=== PATIENT | male | born 1990 | race Caucasian/White ===

== ENCOUNTER 2020-04-17 05:34 | Emergency (ER) | payer OTHER ==
[~2020-04-17] VITALS: Ht 167.6 cm; Wt 58.0 kg
[2020-04-17 05:40] VITALS: BP 105/55
[2020-04-17] MEDS ORDERED: HYDROcodone/APAP 5/325 TABLET PO ONE (06:00)
--- NOTE | 2020-04-17 06:57 | NUR ---
REPORT TO JERED MAIER
[2020-04-17] MEDS ORDERED: HYDROcodone/APAP 5/325 TABLET ONE (07:01)
== END 2020-04-17 07:13 | disposition home or self-care (01) ==
LOC: ED 06:38
DX: K08.89 Other specified disorders of teeth and supporting structures (principal); F17.210 Nicotine dependence, cigarettes, uncomplicated
CPT/HCPCS: 99283

== ENCOUNTER 2021-01-14 22:31 | Emergency (ER) | payer OTHER ==
[~2021-01-14] VITALS: Ht 170.2 cm; Wt 65.0 kg
[2021-01-14 22:33] VITALS: BP 114/74
[2021-01-14] MEDS ORDERED: KETOROLAC 60 MG/2 ML ONE (23:15)
[2021-01-14] MEDS ORDERED: KETOROLAC 60 MG/2 ML IM ONE (23:30)
== END 2021-01-14 23:41 | disposition home or self-care (01) ==
LOC: ED 23:35
DX: S83.206A Unspecified tear of unspecified meniscus, current injury, right knee, initial encounter (principal); M25.461 Effusion, right knee; X58.XXXA Exposure to other specified factors, initial encounter; Y93.89 Activity, other specified; Y92.89 Other specified places as the place of occurrence of the external cause; Y99.8 Other external cause status
CPT/HCPCS: 99281